=== PATIENT | male | born 1985 | race Caucasian/White ===

== ENCOUNTER 2019-08-30 17:23 | Emergency (ER) | payer BC, SELFPAY ==
[2019-08-30 17:24] VITALS: BP 108/43; PULSE 97; RESP 18; TEMP 35.8; O2SAT 95; BMI 35.9
--- NOTE | 2019-08-30 17:40 | ED.VIS.GEN ---
History of Present Illness Chief Complaint: Laceration Detail of Chief Complaint: Left index finger laceration Informant: Patient Onset: Today Current Severity: Mild Maximum Severity: Moderate Narrative: Patient presents with a laceration to the left index finger. This occurred while he was using hedge tremors. He is unsure of his last tetanus update. He is right-hand dominant. Past Medical History - Allergies and Home Meds Allergies/Adverse Reactions: Allergies No Known Allergies Allergy (Verified 08/30/19 17:24) Primary Care Physician: Care Physician,No Primary [Primary Care Provider] - Past Medical History: None Lives: Spouse/ Significant Other Smoking Status: Never smoker Review of Systems General: Denies: Chills, Fever Eyes: Denies: Visual changes - bilaterally ENT: Denies: Bilateral ear pain Cardiovascular: Denies: Chest pain Respiratory: Denies: Dyspnea Gastrointestinal: Denies: Abdominal pain Musculoskeletal: Reports: Extremity Pain Skin: Reports: Wounds Neurological: Denies: Weakness, Parasthesia Hematologic: Denies: Easy bruising Allergy: Denies: Uticaria Physical Exam Vital Signs/Narrative: Vital Signs Temp Pulse Resp BP Pulse Ox 08/30/19 17:24 96.5 F L 97 18 108/43 L 95 Inital Vital Signs reviewed: Yes General: Well nourished, Well developed Head: Normocephalic ENT: Moist mucous membranes Neck: Supple Cardiovascular: Regular rate, Regular rhythm Respiratory: No distress, CTA bilaterally Abdomen: Soft, Nontender Extremities: - - 2.5 cm total length flap laceration to the left distal index finger. Good cap refill distally. Full range of motion and normal sensation. Neurological: Alert, Oriented x3 Psychological: Normal affect Diagnostic/Tx/Re-eval - Medical Decision Making Tetanus update is provided. A total of 7 cc of 1% lidocaine is used and digital block as well as local infiltration. Wound is irrigated. Laceration is U-shaped flap with multiple side tears. A total of 10 simple sutures are used with both 4-0 and 5-0 nylon. Bulky dressing is applied. Patient was given wound care instructions. He is to have sutures removed in 7 to 10 days. Procedures - Lacerations No standard instances Length: 0.98 in Depth: Sub Q Laceration repair: Digital block, Lidocaine, Local Number of Sutures/Dewey: 10 Suture Information: Ethilon, Simple, 4-0, 5-0 ED Disposition - Plan for ED Patient: Disposition: Home or Assisted Living Diagnosis: Finger laceration Instructions: ED Laceration Hand Referrals: Altaf King DO [STAFF PHYSICIAN] - 10 Day for suture removal
[2019-08-30 18:42] VITALS: BP 142/82; PULSE 96; RESP 15; O2SAT 99
[2019-08-30] MEDS: Diphth,Pertuss(Acell),Tet Vac 0.5 ML Vial IM (18:42)
== END 2019-08-30 18:44 | disposition home or self-care (01) ==
PROVIDERS: Emergency Provider Emergency Medicine
DX: S61.211A Laceration without foreign body of left index finger without damage to nail, initial encounter (principal); W27.8XXA Contact with other nonpowered hand tool, initial encounter; Y93.H2 Activity, gardening and landscaping; Y92.89 Other specified places as the place of occurrence of the external cause; Y99.9 Unspecified external cause status; Z23 Encounter for immunization
CPT/HCPCS: 12001; 90471; 90715; 99283

== ENCOUNTER 2020-08-09 11:58 | Emergency (ER) | payer BC, SELFPAY ==
[2020-08-09 11:59] VITALS: BP 116/84; PULSE 111; RESP 16; TEMP 35.5; O2SAT 92; BMI 35.9
--- NOTE | 2020-08-09 12:08 | EX.ED.DYSGE1 ---
HPI History of Present Illness Chief Complaint: Fever Informant: patient Onset/Context/Timing Onset: Days Context: Gradual Onset Timing: Continuous Current Severity: Moderate Maximum Severity: Moderate Narrative Narrative: Patient is a 35-year-old male who presents to the emergency department fever, weakness, generalized malaise. The patient states he was diagnosed with Covid 9 days ago. He states since that time, he has had intermittent fevers, malaise, nausea, diminished appetite. He states he feels generally weak. He has no history of underlying lung disease. He denies being short of breath. He had a scant cough. He denies chest pain. He said no abdominal pain. He states he just feels like he is significantly weak. Prior similar symptoms: No Recent Illness/Hospitalization: No PFSH PFSH Home Medications ondansetron HCl 4 mg PO Q8H PRN PRN 08/30/19 [History Last Taken Unknown] dexamethasone 6 mg PO DAILY #7 tab 08/09/20 [Rx Last Taken Unknown] ondansetron 4 mg PO Q8H PRN PRN #10 tab 08/09/20 [Rx Last Taken Unknown] Allergy/AdvReac Type Severity Reaction Status Date / Time No Known Allergies Allergy Verified 08/09/20 12:03 Social History Smoking Status: Never smoker ROS ROS ED Constitutional Constitutional ED: Reports chills and fever(s) Eyes Eyes: Denies blurry vision or change in vision ENT ENT ED: Denies ear pain or sore throat Cardiovascular Cardiovascular: Denies chest pain or palpitations Respiratory/Chest Respiratory/Chest: Reports cough Gastrointestinal Gastrointestinal: Reports nausea Genitourinary Genitourinary ED: Denies dysuria or urinary frequency Musculoskeletal Musculoskeletal: Denies arthralgias or myalgias Integumentary Denies rash Neurologic Neurologic: Denies headache(s) or paresthesias Psychiatric Psychiatric: Denies anxiety or depression Endocrine Endocrinology: Denies polydipsia or polyuria Allergic/Immunologic Allergic/Immunologic ED: Denies urticaria EXAM Physical Exam Const Vital Signs: 08/09/20 11:59 08/09/20 12:18 08/09/20 12:21 Temperature 95.9 F L 100.2 F H Temperature Source Temporal Oral Pulse Rate 111 H 101 H Respiratory Rate 16 18 Respiratory Effort Short of Breath Respiratory Pattern Normal Blood Pressure 116/84 H 116/84 H Blood Pressure Mean 94 94 Pulse Ox 92 93 Oxygen Delivery Method Room Air Room Air Positive well nourished and well developed General Appearance ED: well developed HEENT Reports normocephalic, head/scalp atraumatic and moist mucous membranes Eyes PERRL and EOMs intact bilaterally Neck no lymphadenopathy and supple General: Negative for tenderness Chest Wall inspection of chest normal Resp normal respiratory effort and clear to auscultation bilaterally Cardio regular rate, regular rhythm and no murmurs GI normal to inspection, nondistended, normoactive bowel sounds Palpation: Negative for tender, guarding or rebound tenderness present Back/Spine no CVA tenderness Cervical Spine: Negative for cervical spine tenderness Thoracic Spine / Upper Back: Negative for thoracic spinal tenderness Extremity normal to inspection General Extremety ED: Negative for tenderness Neuro oriented x3 and CN's II-XII intact bilaterally Neuro Narrative: No focal deficits appreciated. Sensorium / Orientation: alert Psych mental status grossly normal Skin no rashes or lesions noted, no wounds and skin turgor normal MDM MDM MDM Narrative Medical decision making narrative: Patient is Covid positive and presents with generalized malaise. He does have low-grade fever here. He has not however hypoxic or tachypneic. I did obtain metabolic work-up. He does have leukopenia consistent with Covid. Kidney function is normal. There is minimal elevation of liver functions consistent with his viral infection. I did obtain chest x-ray. Is reviewed by both myself and the radiologist. He does have patchy infiltrates that are consistent with Covid. Patient was given fluids and antiemetics. His fever was addressed. On reevaluation, he is feeling mildly improved. He has no oxygen requirement, I am going to cover him with Decadron. He will also be given Zofran. I do for the patient is a for outpatient therapy. Impression 1. COVID-19 2. Malaise Lab Data Attestation: I reviewed the patient's lab results. Labs: Laboratory Results - last 24 hr 08/09/20 08/09/20 12:25 12:25 WBC 4.2 L RBC 5.48 Hgb 15.7 Hct 45.4 MCV 82.8 MCH 28.6 MCHC 34.6 RDW Std Deviation 38.0 RDW Coeff of Ellen 12.5 Plt Count 170 MPV 9.9 Immature Gran % (Auto) 0.500 Neut % (Auto) 67.9 Lymph % (Auto) 22.6 [place] % (Auto) 8.6 Eos % (Auto) 0.2 Baso % (Auto) 0.2 Absolute Neuts (auto) 2.9 Absolute Lymphs (auto) 0.95 Nucleated RBC % 0 Sodium 135 L Potassium 3.4 L Chloride 99 Carbon Dioxide 30.0 Anion Gap 6 BUN 17 Creatinine 1.11 Estim Creat Clear Calc 97.74 Est GFR (MDRD) Af Amer 98 Est GFR (MDRD) Non-Af 81 BUN/Creatinine Ratio 15.3 Glucose 99 Calcium 9.0 Total Bilirubin 0.60 AST 90 H ALT 108 H Alkaline Phosphatase 88 Total Protein 8.6 H Albumin 3.9 Globulin 4.7 H Albumin/Globulin Ratio 0.8 L Radiography Diagnostic Testing: Radiology Impression Chest X-Ray 08/09/20 12:28 IMPRESSION: Focal right upper lobe infiltrate. Mild increased markings at the left lung base. Electronically Signed: Kishore Torres MD at 12:52 EDT , Service support , Discharge Plan Triage Chief Complaint: Fever ED Provider: Arvin Burgos Dx/Rx/DC Orders Instructions: Coronavirus Disease 2019 (COVID-19): Caring for Yourself or Others Prescriptions: New dexamethasone 6 MG tablet 6 mg PO DAILY Qty: 7 RF: 0 ondansetron [ondansetron] 4 MG tablet 4 mg PO Q8H PRN PRN (Reason: Nausea) Qty: 10 RF: 0 No Action ondansetron HCl 4 MG tablet 4 mg PO Q8H PRN PRN (Reason: Nausea) RF: 0 Primary Care Provider: Care Physician,No Primary Referrals: Care Physician,No Primary [Primary Care Provider] -
[2020-08-09 12:21] VITALS: BP 116/84; PULSE 101; RESP 18; TEMP 37.9; O2SAT 93
[2020-08-09] MEDS: Ondansetron 4 MG/2 ML Vial IV (12:26)
--- NOTE | 2020-08-09 12:28 | RAD_ITS ---
STUDY: X-RAY CHEST REASON FOR EXAM: Male, 35 years old. Increasing shortness of breath. Fever. Recent diagnosis of Covid. TECHNIQUE: Single AP portable view of the chest. COMPARISON: None. FINDINGS: EKG electrodes are seen. There is elevation of the right hemidiaphragm. There is evidence of a focal infiltrate in the right upper lobe. Minimal increased markings at the left lung base. There is no demonstrated pleural abnormality. Normal size heart. Normal mediastinum and kina. Normal visualized pulmonary arteries. Normal visualized aortic arch and descending thoracic aorta. Normal visualized thoracic spine. Normal visualized ribs, clavicles, and shoulders. There is no demonstrated abnormality of the visualized soft tissue structures of the upper abdomen. RAD/Chest 1 View (Portable) IMPRESSION: Focal right upper lobe infiltrate. Mild increased markings at the left lung base. Electronically Signed: Kishore Torres MD at 12:52 EDT , Service support ,
[2020-08-09 12:35] LABS: Absolute Lymphocyte Count 0.95 X10^3/uL (0.83-4.51); Absolute Neutrophil Count 2.9 X10^3/uL (2.0-7.7); Basophil# 0.01 X10^3/uL; Basophil% 0.2 % (0-1); Eosinophil# 0.01 X10^3/uL; Eosinophils% 0.2 % (0-5); Hematocrit 45.4 % (40-54); Hemoglobin 15.7 g/dL (13.0-16.5); Lymphocyte # 0.95 X10^3/ul (0.83-4.51); Lymphocyte % 22.6 % (19-41); Mean Corp Hgb Conc 34.6 g/dL (32-36); Mean Corpuscular Hgb 28.6 pg (27.0-32.0); Mean Corpuscular Volume 82.8 fL (80-94); Mean Platelet Vol. 9.9 fl (6.2-12.0); Monocyte# 0.36 X10^3/uL; Monocyte% 8.6 % (0-10); NRBC Flagged by Analyzer 0 % (0-5); Neutrophil # 2.85 X10^3/uL (2.7-7.7); Neutrophil % 67.9 % (47-70); Platelet Count 170 K/mm3 (150-450); RBC Distribution Width CV 12.5 % (11.6-14.6); Red Blood Count 5.48 M/mm3 (4.6-6.2); White Blood Count 4.2 K/mm3 (4.4-11.0)
[2020-08-09 12:49] LABS: ALB/GLOB Ratio 0.8 RATIO (0.9-2.4); AST(SGOT) 90 U/L (15-37); Alanine Aminotransfer ALT/SGPT 108 U/L (16-61); Albumin, Serum 3.9 g/dL (3.2-5.0); Alkaline Phosphatase 88 U/L (45-117); Anion Gap 6 (5-15); BUN 17 mg/dL (7-18); BUN/Creat Ratio 15.3 RATIO (10-20); Chloride 99 mmol/L (98-107); Creatinine, Serum 1.11 mg/dL (0.70-1.30); EST Glomerular Filtration Rate 81 mL/min (>60); Est Glom Filt Rate - Afr Amer 98 mL/min (>60); Estimated Creatinine Clearance 97.74 ml/min; Globulin 4.7 g/dL (2.2-4.2); Glucose 99 mg/dL (74-106); Potassium 3.4 mmol/L (3.5-5.1); Protein, Total 8.6 g/dL (6.4-8.2); Sodium Level 135 mmol/L (136-145)
[2020-08-09] MEDS: dexAMETHasone 10 MG/ML Vial 6 MG PO.IVFORM (13:55)
[2020-08-09 14:02] VITALS: BP 126/77; PULSE 100; PULSE 99; RESP 26; O2SAT 94
== END 2020-08-09 14:03 | disposition home or self-care (01) ==
LOC: ED 12:48
PROVIDERS: Emergency Provider Emergency Medicine
DX: U07.1 COVID-19 (principal); R53.81 Other malaise; Z79.52 Long term (current) use of systemic steroids
CPT/HCPCS: 71045; 80053; 85025; 96361; 96374; 99285; J7040; A4216; J2405